=== PATIENT | female | born 1980 | race African-American/Black ===

== ENCOUNTER 2021-12-10 14:46 | Outpatient (REF) | payer OTHER, SELFPAY ==
[2021-12-10 15:47] LABS: Estimated Average Glucose 280 mg/dL; Hemoglobin A1c % 11.4 %
[2021-12-10 16:07] LABS: Alanine Aminotransferase 24 U/L (0-31); Albumin Level 4.4 g/dL (3.5-5.0); Alkaline Phosphatase 88 U/L (39-117); Anion Gap 15 (12-20); Aspartate Amino Transferase 16 U/L (5-31); Bilirubin Total 0.4 mg/dL (0.0-1.0); Blood Urea Nitrogen 12 mg/dL (9-16); Calcium 10.3 mg/dL (8.4-10.2); Carbon Dioxide 25 mmol/L (22-29); Chloride 97 mmol/L (96-108); Estimated Glomerular Filt Rate 49; Glucose Random 400 mg/dL (60-115); Potassium 4.8 mmol/L (3.3-5.1); Sodium 132 mmol/L (135-145); Total Protein 8.1 g/dL (6.5-8.0)
== END 2021-12-10 14:47 | disposition home or self-care (01) ==
LOC: HO.LAB 14:46
PROVIDERS: PCP Internal Medicine; Visit Provider Internal Medicine
DX: E11.65 Type 2 diabetes mellitus with hyperglycemia (principal); H81.10 Benign paroxysmal vertigo, unspecified ear; I10 Essential (primary) hypertension; R51.9 Headache, unspecified
CPT/HCPCS: 36415; 80053; 83036

== ENCOUNTER 2022-04-01 10:25 | Outpatient (REF) | payer OTHER, SELFPAY ==
[2022-04-01 11:19] LABS: MANUAL DIFF FLAG NO
[2022-04-01 12:20] LABS: Basophils Percent Auto 0.2 % (0-2); Eosinophils Absolute Auto 0.1 X10*3/uL (0.0-0.4); Eosinophils Percent Auto 2.1 % (0-4); Hematocrit 38.3 % (37.0-47.0); Hemoglobin 11.9 g/dl (12.0-16.0); Lymphocytes Absolute Auto 2.1 X10*3/uL (1.2-4.9); Lymphocytes Percent Auto 48.4 % (20-40); Mean Corpuscular HGB Conc 31.1 g/dl (31.0-35.0); Mean Corpuscular Hemoglobin 26.2 pg (27.0-33.0); Mean Corpuscular Volume 84.4 fL (80.0-98.0); Monocytes Absolute Auto 0.4 X10*3/uL (0.1-1.2); Monocytes Percent Auto 8.9 % (2-11); Neutrophils Absolute Auto 1.8 x10*3/uL (2.0-8.3); Neutrophils Percent Auto 40.4 % (45-73); Platelet Count 325 X10*3/uL (160-400); Red Blood Count 4.54 X10*6/uL (4.20-5.50); Red Cell Distribution Width 15.8 % (11.0-16.0); White Blood Count 4.4 X10*3/uL (4.8-10.8)
[2022-04-01 12:44] LABS: Estimated Average Glucose 157 mg/dL; Hemoglobin A1c % 7.1 %
[2022-04-01 12:46] LABS: Alanine Aminotransferase 22 U/L (0-31); Albumin Level 4.2 g/dL (3.5-5.0); Alkaline Phosphatase 63 U/L (39-117); Anion Gap 14 (12-20); Aspartate Amino Transferase 20 U/L (5-31); Bilirubin Total 0.4 mg/dL (0.0-1.0); Blood Urea Nitrogen 13 mg/dL (9-16); Calcium 9.5 mg/dL (8.4-10.2); Carbon Dioxide 28 mmol/L (22-29); Chloride 103 mmol/L (96-108); Cholesterol 183 mg/dL; Estimated Glomerular Filt Rate > 60; Glucose Random 87 mg/dL (60-115); HDL Cholesterol 47 mg/dL; LDL Cholesterol Calculated 123 mg/dl; Potassium 4.2 mmol/L (3.3-5.1); Sodium 141 mmol/L (135-145); Total Protein 7.7 g/dL (6.5-8.0); Triglycerides 65 mg/dL
[2022-04-01 13:13] LABS: Creatinine Urine 120.69 mg/dL; Microalbum/Creatinine Ratio Ur 16.5 ug/mg cr
== END 2022-04-01 10:26 | disposition home or self-care (01) ==
LOC: HO.LAB 10:25
PROVIDERS: PCP Internal Medicine; Visit Provider Internal Medicine
DX: D50.9 Iron deficiency anemia, unspecified (principal); E11.65 Type 2 diabetes mellitus with hyperglycemia
CPT/HCPCS: 36415; 80053; 80061; 82043; 83036; 85025

== ENCOUNTER 2022-06-18 09:39 | Outpatient (REF) | payer OTHER, SELFPAY ==
[2022-06-22 19:29] LABS: Glutamic acid decarboxylase Ab <5 IU/mL (<5)
== END 2022-06-18 09:40 | disposition home or self-care (01) ==
LOC: HO.LAB 09:39
PROVIDERS: PCP Internal Medicine; Visit Provider Internal Medicine Endocrinology, Diabetes & Metabolism
DX: E11.9 Type 2 diabetes mellitus without complications (principal)
CPT/HCPCS: 36415; 82947; 86341

== ENCOUNTER 2022-08-15 07:29 | Outpatient (REF) | payer OTHER, SELFPAY ==
[2022-08-15 08:32] LABS: Glucose Random 97 mg/dL (60-115)
[2022-08-15 08:36] LABS: Alanine Aminotransferase 10 U/L (0-31); Alkaline Phosphatase 62 U/L (39-117); Anion Gap 11 (12-20); Aspartate Amino Transferase 13 U/L (5-31); Bilirubin Total 0.3 mg/dL (0.0-1.0); Blood Urea Nitrogen 14 mg/dL (9-16); Calcium 9.1 mg/dL (8.4-10.2); Carbon Dioxide 27 mmol/L (22-29); Chloride 106 mmol/L (96-108); Estimated Glomerular Filt Rate > 60; Glucose Random 97 mg/dL (60-115); Sodium 140 mmol/L (135-145)
[2022-08-15 08:37] LABS: Estimated Average Glucose 146 mg/dL; Hemoglobin A1c % 6.7 %
== END 2022-08-15 07:30 | disposition home or self-care (01) ==
LOC: HO.LAB 07:29
PROVIDERS: PCP Internal Medicine; Visit Provider Internal Medicine
DX: E11.9 Type 2 diabetes mellitus without complications (principal); N30.01 Acute cystitis with hematuria; R30.0 Dysuria; R35.0 Frequency of micturition
CPT/HCPCS: 36415; 80053; 82947; 83036

== ENCOUNTER 2022-12-19 11:08 | Outpatient (REF) | payer OTHER, SELFPAY ==
[2022-12-19 11:20] LABS: MANUAL DIFF FLAG NO
[2022-12-19 11:33] LABS: Basophils Percent Auto 0.4 % (0-2); Eosinophils Absolute Auto 0.1 X10*3/uL (0.0-0.4); Eosinophils Percent Auto 1.8 % (0-4); Hematocrit 36.9 % (37.0-47.0); Hemoglobin 11.5 g/dl (12.0-16.0); Lymphocytes Absolute Auto 2.3 X10*3/uL (1.2-4.9); Lymphocytes Percent Auto 46.1 % (20-40); Mean Corpuscular HGB Conc 31.2 g/dl (31.0-35.0); Mean Corpuscular Hemoglobin 26.7 pg (27.0-33.0); Mean Corpuscular Volume 85.6 fL (80.0-98.0); Mean Platelet Volume 9.8 fL (9.4-12.3); Monocytes Absolute Auto 0.4 X10*3/uL (0.1-1.2); Monocytes Percent Auto 8.9 % (2-11); Neutrophils Absolute Auto 2.1 x10*3/uL (2.0-8.3); Neutrophils Percent Auto 42.8 % (45-73); Platelet Count 298 X10*3/uL (160-400); Red Blood Count 4.31 X10*6/uL (4.20-5.50); Red Cell Distribution Width 15.4 % (11.0-16.0)
[2022-12-19 11:38] LABS: Estimated Average Glucose 134 mg/dL; Hemoglobin A1c % 6.3 %
[2022-12-19 12:19] LABS: Alanine Aminotransferase 17 U/L (0-31); Albumin Level 4.2 g/dL (3.5-5.0); Alkaline Phosphatase 65 U/L (39-117); Anion Gap 11 (12-20); Aspartate Amino Transferase 17 U/L (5-31); Bilirubin Total 0.3 mg/dL (0.0-1.0); Blood Urea Nitrogen 11 mg/dL (9-16); Calcium 9.2 mg/dL (8.4-10.2); Carbon Dioxide 30 mmol/L (22-29); Chloride 104 mmol/L (96-108); Cholesterol 175 mg/dL; Estimated Glomerular Filt Rate > 60; Glucose Random 66 mg/dL (60-115); HDL Cholesterol 51 mg/dL; LDL Cholesterol Calculated 111 mg/dl; Potassium 4.1 mmol/L (3.3-5.1); Sodium 141 mmol/L (135-145); Total Protein 7.3 g/dL (6.5-8.0); Triglycerides 67 mg/dL
[2022-12-19 12:43] LABS: Ferritin 72 ng/mL (10-250); Vitamin B12 > 2000 pg/mL (200-900)
[2022-12-19 13:05] LABS: Creatinine Urine 213.76 mg/dL; Microalbum/Creatinine Ratio Ur 96.3 ug/mg cr
== END 2022-12-19 11:09 | disposition home or self-care (01) ==
LOC: HO.LAB 11:08
PROVIDERS: PCP Internal Medicine; Visit Provider Internal Medicine
DX: Z00.00 Encounter for general adult medical examination without abnormal findings (principal); I10 Essential (primary) hypertension; E11.9 Type 2 diabetes mellitus without complications; D57.3 Sickle-cell trait
CPT/HCPCS: 36415; 80053; 80061; 82043; 82607; 82728; 83036; 85025

== ENCOUNTER 2023-04-07 14:11 | Outpatient (REF) | payer OTHER, SELFPAY ==
[2023-04-07 15:13] LABS: Alanine Aminotransferase 11 U/L (0-31); Albumin Level 4.1 g/dL (3.5-5.0); Alkaline Phosphatase 62 U/L (39-117); Anion Gap 9 (12-20); Aspartate Amino Transferase 14 U/L (5-31); Bilirubin Total 0.4 mg/dL (0.0-1.0); Blood Urea Nitrogen 10 mg/dL (9-16); Calcium 9.8 mg/dL (8.4-10.2); Carbon Dioxide 30 mmol/L (22-29); Chloride 103 mmol/L (96-108); Cholesterol 141 mg/dL (<200); Estimated Glomerular Filt Rate > 60; Glucose Random 104 mg/dL (60-115); HDL Cholesterol 50 mg/dL (>40); LDL Cholesterol Calculated 78 mg/dL (<100); Potassium 3.5 mmol/L (3.3-5.1); Sodium 138 mmol/L (135-145); Total Protein 7.6 g/dL (6.5-8.0); Triglycerides 67 mg/dL (<150)
[2023-04-07 15:15] LABS: Estimated Average Glucose 131 mg/dL; Hemoglobin A1c % 6.2 % (<6.0)
== END 2023-04-07 14:12 | disposition home or self-care (01) ==
LOC: HO.LAB 14:11
PROVIDERS: PCP Internal Medicine; Visit Provider Internal Medicine
DX: E11.9 Type 2 diabetes mellitus without complications (principal); E78.00 Pure hypercholesterolemia, unspecified; I10 Essential (primary) hypertension; R80.8 Other proteinuria
CPT/HCPCS: 36415; 80053; 80061; 83036

== ENCOUNTER 2023-10-21 12:15 | Outpatient (REF) | payer OTHER, SELFPAY ==
[2023-10-21 12:38] LABS: MANUAL DIFF FLAG NO
[2023-10-21 13:19] LABS: Basophils Percent Auto 0.3 % (0-2); Eosinophils Absolute Auto 0.2 X10*3/uL (0.0-0.4); Eosinophils Percent Auto 5.3 % (0-4); Hematocrit 38.1 % (37.0-47.0); Hemoglobin 11.9 g/dl (12.0-16.0); Imm Gran Abs Auto 0.01 X10*3/uL (0.00-0.03); Imm Gran Pct Auto 0.3 % (0.0-0.4); Lymphocytes Absolute Auto 1.8 X10*3/uL (1.2-4.9); Lymphocytes Percent Auto 45.9 % (20-40); Mean Corpuscular HGB Conc 31.2 g/dl (31.0-35.0); Mean Corpuscular Hemoglobin 26.7 pg (27.0-33.0); Mean Corpuscular Volume 85.6 fL (80.0-98.0); Mean Platelet Volume 9.6 fL (9.4-12.3); Monocytes Absolute Auto 0.3 X10*3/uL (0.1-1.2); Monocytes Percent Auto 6.8 % (2-11); Neutrophils Absolute Auto 1.7 x10*3/uL (2.0-8.3); Neutrophils Percent Auto 41.4 % (45-73); Platelet Count 282 X10*3/uL (160-400); Red Blood Count 4.45 X10*6/uL (4.20-5.50); Red Cell Distribution Width 15.4 % (11.0-16.0)
[2023-10-21 13:32] LABS: Estimated Average Glucose 140 mg/dL; Hemoglobin A1c % 6.5 % (<6.0)
[2023-10-21 14:02] LABS: Creatinine Urine 86.32 mg/dL; Microalbum/Creatinine Ratio Ur 20.8 ug/mg cr (<30)
[2023-10-21 14:08] LABS: Alanine Aminotransferase 15 U/L (0-31); Albumin Level 4.2 g/dL (3.5-5.0); Alkaline Phosphatase 61 U/L (39-117); Anion Gap 9 (12-20); Aspartate Amino Transferase 15 U/L (5-31); Bilirubin Total 0.3 mg/dL (0.0-1.0); Blood Urea Nitrogen 15 mg/dL (9-16); Calcium 9.4 mg/dL (8.4-10.2); Carbon Dioxide 30 mmol/L (22-29); Chloride 105 mmol/L (96-108); Cholesterol 169 mg/dL (<200); Estimated Glomerular Filt Rate > 60; Glucose Random 107 mg/dL (60-115); HDL Cholesterol 53 mg/dL (>40); LDL Cholesterol Calculated 108 mg/dL (<100); Potassium 3.9 mmol/L (3.3-5.1); Sodium 140 mmol/L (135-145); Total Protein 7.7 g/dL (6.5-8.0); Triglycerides 44 mg/dL (<150)
[2023-10-21 14:12] LABS: Ferritin 74 ng/mL (10-250)
[2023-10-21 14:19] LABS: Vitamin B12 1294 pg/mL (200-900)
[2023-10-22 19:13] LABS: Follicle Stimulating Hormone 38.8 mIU/mL; Prolactin 20.7 ng/mL
== END 2023-10-21 12:16 | disposition home or self-care (01) ==
LOC: HO.LAB 12:15
PROVIDERS: PCP Internal Medicine; Visit Provider Internal Medicine
DX: Z00.00 Encounter for general adult medical examination without abnormal findings (principal); N91.1 Secondary amenorrhea; N64.3 Galactorrhea not associated with childbirth; I10 Essential (primary) hypertension; E78.00 Pure hypercholesterolemia, unspecified; E11.9 Type 2 diabetes mellitus without complications; D50.9 Iron deficiency anemia, unspecified
CPT/HCPCS: 36415; 80053; 80061; 82043; 82570; 82607; 82728; 83001; 83036; 84146; 85025

== ENCOUNTER 2024-05-24 08:28 | Outpatient (REF) | payer OTHER, SELFPAY ==
[2024-05-24 10:15] LABS: Estimated Average Glucose 146 mg/dL; Hemoglobin A1c % 6.7 % (<6.0); Total Hemoglobin (HGBA1C) 3002.2858 umol/L
[2024-05-24 11:06] LABS: Alanine Aminotransferase 19 U/L (0-31); Albumin Level 3.9 g/dL (3.5-5.0); Alkaline Phosphatase 58 U/L (39-117); Anion Gap 11 (12-20); Aspartate Amino Transferase 18 U/L (5-31); Bilirubin Total 0.2 mg/dL (0.0-1.0); Blood Urea Nitrogen 11 mg/dL (9-16); Calcium 9.5 mg/dL (8.4-10.2); Carbon Dioxide 26 mmol/L (22-29); Chloride 108 mmol/L (96-108); Cholesterol 161 mg/dL (<200); Estimated Glomerular Filt Rate > 60; Glucose Random 105 mg/dL (60-115); HDL Cholesterol 43 mg/dL (>40); LDL Cholesterol Calculated 106 mg/dL (<100); Potassium 3.9 mmol/L (3.3-5.1); Sodium 141 mmol/L (135-145); Total Protein 7.4 g/dL (6.5-8.0); Triglycerides 60 mg/dL (<150)
[2024-05-25 15:24] LABS: Prolactin 4.6 ng/mL
== END 2024-05-24 08:29 | disposition home or self-care (01) ==
LOC: HO.LAB 08:28
PROVIDERS: PCP Internal Medicine; Visit Provider Internal Medicine
DX: E11.9 Type 2 diabetes mellitus without complications (principal); E78.00 Pure hypercholesterolemia, unspecified; I10 Essential (primary) hypertension; M22.2X1 Patellofemoral disorders, right knee; M22.2X2 Patellofemoral disorders, left knee
CPT/HCPCS: 36415; 80053; 80061; 83036; 84146

== ENCOUNTER 2024-09-10 10:50 | Outpatient (REF) | payer OTHER, SELFPAY ==
[2024-09-10 11:45] LABS: Estimated Average Glucose 146 mg/dL; Hemoglobin A1C 155.5975 umol/L; Hemoglobin A1c % 6.7 % (<6.0); Total Hemoglobin (HGBA1C) 3118.3583 umol/L
--- OUTSIDE RECORDS SUMMARY | 2024-09-10 11:55 | XMS_ITS | Encounter Summary ---
Author Organization [facility] Address [address] [place] [address] Care Team Providers Care Professor Of Marketing Name Role Phone Alanna Shay Primary Care Provider [phone] Reason for Visit * Reason Onset Date Comments PAC Appt Request - New 09/07/2024 Encounter Details Date Type Department Care Team (Late st Contact Info) Description 09/07/2024 Telephone [facility] [address] [place] [address] Technical Specialist Cytology: Scar Solorzano Telephone Intake, Staff PAC Appt Request - New Social History Tobacco Use Types Packs/Day Years Used Date Smoking Tobacco: Never Assessed Comments Unknown Sex and Gender Information Value Date Recorded Sex Assigned at Female 07/27/2024 11:39 AM EST Legal Sex Female 7:06 AM EDT Gender Identity Not on file Sexual Orientation Not on file documented as of this encounter Miscellaneous Notes * Telephone Encounter - Cheryl Guillen - 09/07/2024 1:32 PM EST Pt called to receive an update on rescheduling appt dated 09/07/24 @ 8:30am. Pls contact pt to resched, per her request. Thank you. * Telephone Encounter - Claribel Cheli - 09/07/2024 8:56 AM EST Patient calling to reschedule her appointment today 09-07-2024 at 8:30 am with Martha Brower because her car broke down, she is waiting on AAA. Patient is departing 09-17-2024 to [facility] patient is requesting an in person appointment unable to schedule before departure date. Pleasereach out to patient at [phone] documented in this encounter Plan of Treatment Not on file documented as of this encounter Visit Diagnoses Not on filedocumented in this encounter Care Teams Professor Of Marketing Relationship Specialty Start Date End Date Alanna Shay [address] [facility] [address] [place] [address] PCP - General Internal Medicine 11/22/21 documented as of this encounter
--- OUTSIDE RECORDS SUMMARY | 2024-09-10 11:55 | XMS_ITS | Encounter Summary ---
Author Organization [facility] Address [address] [place] [address] Care Team Providers Care Fixed Income Analyst Name Role Phone Alanna Shay Primary Care Provider [phone] Encounter Details Date Type Department Care Team (Late st Contact Info) Description 09/07/2024 Telephone [facility] [address] [place], [place] [id number] Aboriginal Ceremonial Celebrant: Scar Grider, Pcp [place] Social History Tobacco Use Types Packs/Day Years Used Date Smoking Tobacco: Never Assessed Comments Unknown Sex and Gender Information Value Date Recorded Sex Assigned at Female 07/27/2024 11:39 AM EST Legal Sex Female 7:06 AM EDT Gender Identity Not on file Sexual Orientation Not on file documented as of this encounter Miscellaneous Notes * Telephone Encounter - Jeffery Tipton - 09/07/2024 4:16 PM EST Called pt to reschedule travel consult no answer lvm documented in this encounter Plan of Treatment Not on file documented as of this encounter Visit Diagnoses Not on filedocumented in this encounter Care Teams Fixed Income Analyst Relationship Specialty Start Date End Date Alanna Shay [address] [facility] [address] [place] [address] PCP - General Internal Medicine 11/22/21 documented as of this encounter
--- OUTSIDE RECORDS SUMMARY | 2024-09-10 11:55 | XMS_ITS | Clinical Summary ---
Author Organization [facility] Address [address] [place] [address] Care Team Providers Care Wheelchair Rental Clerk Name Role Phone Alanna Shay Primary Care Provider [phone] Allergies No known active allergies Medications mefloquine (LARIAM) 250 mg tablet 1 tablet orally once weekly for 2 weeks before travel, weekly during travel and for 4 weeks after returning home 10 tablet 2 Active Active Problems No known active problems Encounters Date Type Department Care Team Description 09/07/2024 Telephone [facility] [address] [place], [place] [id number] Yardmaster: Scar Solorzano No, Pcp 09/07/2024 Telephone [facility] [address] [place] [id number] Yardmaster: Scar Solorzano Telephone Intake, Staff PAC Appt Request - New from Last 3 Months Immunizations Immunization Administration Dates Next Due Meningococcal Polysaccharide (Groups A, C, Y and W-135) Diphtheria Toxoid Conjugate Vaccine (MCV4P) 12/31/2021 Typhoid Vi Capsular Polysaccharide Vaccine 12/31 Social History Tobacco Use Types Packs/Day Years Used Date Smoking Tobacco: Never Assessed Comments Unknown Sex and Gender Information Value Date Recorded Sex Assigned at Female 07/27/2024 11:39 AM EST Legal Sex Female 7:06 AM EDT Gender Identity Not on file Sexual Orientation Not on file Last Filed Vital Signs Vital Sign Reading Time Taken Comments Blood Pressure - - Pulse - - Temperature 36.7 ??C (98.1 ??F) 12/31/2021 5:08 PM ED T Respiratory Rate - - Oxygen Saturation - - Inhaled Oxygen Concentration - - Weight 81.2 kg (179 lb 0.2 oz) 12/31/2021 5:08 P M EDT Height - - Body Mass Index - - Plan of Treatment Health Maintenance Due Date Last Done Comments HIV Screening 1980 Hepatitis C Screening 1980 Varicella Vaccines (1 of 2 - 13+ 2-dose series) 1993 Hepatitis B Vaccines (1 of 3 - 19+ 3-dose series) 1999 Pap Smear 09/23/2005 09/23/2002, 12/01/2000 Cervical Cancer Screening 09/24/2007 HPV and Pap Smear 09/24/2007 09/23/2002 Mammogram 2020 DTaP,Tdap,and Td Vaccines (2 - Td or Tdap) 01/28/2023 01/28/2013 COVID-19 Vaccine ( season) 2024 05/03/2021, 08/29/2020, 08/08/2020 Alcohol/Substance Use Screening 07/21/2024 Depression Screening and Follow-Up 07/21/2024 Social Drivers of Health Annual Screening 07/21/2024 RSV Vaccine (60+ years old and patients) (1 - 1-dose 75+ series) 2055 Influenza Vaccine Completed 04/27/2024, , 05/01/2021, Additional history exists Pneumococcal Vaccine: Pediatric (0-5 Years) and At-Risk Patients (6-50 Years) Aged Out No longer eligible based on patient's age to complete this topic Procedures * Due to [place] [employer] law, this organization might not be sharing negative HIV tests. Procedure Name Priority Date/Time Associated Diagnosis Comments PAP W/REFLEX HPV, CONVERSION Routine 09/23/2002 10:43 AM EST from Last 3 Months or Most Recently Relevant to Health Maintenance Results * Due to [place] [employer] law, this organization might not be sharing negative HIV tests. * Pap w/Reflex HPV (09/23/2002 10:43 AM EST) Path Procedure TPG ([id number]) 1 ?? Edited by: [id number] [facility] Specimen Labeled As: 1 CERVICAL/ENDOCERVI VASHTI CYTO MATERIAL - Edited by: [id number] YURIY-RE [facility] Diagnosis ?THINPREP PAP TEST ? ADEQUACY: ? Satisfactory for evaluation ? INTERPRETATION: ? Negative for Intraepithelial Lesion or Malignancy ? REMARKS/RECOMMENDA TIONS: ? This is the result of a screening test with an inherent, but low, ?? probability of false negative interpretation. Additional studies may be ?? indicated in spite of a normal Pap test result. ?? Edited by: [id number] - 9368 AMRIK [facility] Gynecologic Clinical Data Specimen source:, THINPREP (CERVICAL AND ENDOCERVICAL) [facility] Gynecologic Clinical Data First date of LMP:, 09/04/02 [facility] Marker 1 RCROSLYN ALDANA [facility] Marker 2 NILM,NILM [facility] Cc Results To RENETTA DENISE REF [id number] [facility] Signature REPORT SIGNED: ROSLYN ALDANA 09/28/02 [facility] Sign Out Audit ROSLYN ALDANA [id number] [place] [place] [id number] [facility] Cytology / Unknown 3 10:43 AM EST 09/24/2002 10:43 AM EST us Marlin Phillips LAB HISTORICAL RESULTS Final Res ult [facility] [address] [place] [address], from Last 3 Months or Most Recently Relevant to Health Maintenance Insurance [employer] Care Teams Wheelchair Rental Clerk Relationship Specialty Start Date End Date Alanna Shay [address] [facility] [address] [place] [address] PCP - General Internal Medicine 11/22/21
--- OUTSIDE RECORDS SUMMARY | 2024-09-10 11:55 | XMS_ITS | Referral Summary ---
Author Organization [facility] Address [address] [place] [address] Care Team Providers Care Professor Of Musicology Name Role Phone Alanna Shay Primary Care Provider [phone] Encounters Date Type Department Care Team Description 09/07/2024 Telephone [facility] [address] [place] [address] Associate Professor Of Pathology: Scar Solorzano No, Pcp 09/07/2024 Telephone [facility] [address] [place] [id number] Associate Professor Of Pathology: Scar Solorzano Telephone Intake, Staff PAC Appt Request - New from Last 3 Months Allergies No known active allergies Medications mefloquine (LARIAM) 250 mg tablet 1 tablet orally once weekly for 2 weeks before travel, weekly during travel and for 4 weeks after returning home 10 tablet 2 Active Active Problems No known active problems Immunizations Immunization Administration Dates Next Due Meningococcal [...] Mass Index - - Plan of Treatment Not on file Procedures * Due to [facility] law, this organization might not be sharing negative HIV tests. Procedure Name Priority Date/Time Associated Diagnosis Comments PAP W/REFLEX HPV, CONVERSION Routine 09/23/2002 10:43 AM EST from Last 3 Months or Most Recently Relevant to Health Maintenance Results * Due to [place] [employer] law, this organization might not be sharing negative HIV tests. * Pap w/Reflex HPV (09/23/2002 10:43 AM EST) Path Procedure TPG ([id number]) 1 ?? Edited by: [id number] - 1042 [facility]A [facility] - [facility] Specimen Labeled As: 1 CERVICAL/ENDOCERVI VASHTI CYTO MATERIAL - Edited by: [id number] - 1042 YURIY-LITTLE [facility] - [facility] Diagnosis ?THINPREP [...] normal Pap test result. ?? Edited by: [id number] - 1334 AMRIK [facility] - [facility] Gynecologic Clinical Data Specimen source:, THINPREP (CERVICAL AND ENDOCERVICAL) [facility] - [facility] Gynecologic Clinical Data First date of LMP:, 09/04/02 [facility] - [facility] Marker 1 ROSLYN [facility]AT[facility] - [facility] Marker 2 NILM,NILM [facility]AT[facility] - [facility] THREE Cc Results To RENETTA DENISE REF [id number] [facility] - [facility] Signature REPORT SIGNED: ROSLYN ALDANA 09/28/02 [facility] - [facility] Sign Out Audit JOVANROSLYN Henrry [id number] FINAL [place] [id number] [facility] - [facility] THREE Cytology / Unknown 3 10:43 AM EST 09/24/2002 10:43 AM EST us Marlin Phillips LAB HISTORICAL RESULTS Final Res ult [facility] - [facility] [address] [place] [address], from Last 3 Months or Most Recently Relevant to Health Maintenance Insurance [employer] Care Teams Professor Of Musicology Relationship Specialty Start Date End Date Alanna Shay [address] [facility] [address] [place] [address] PCP - General Internal Medicine 11/22/21
[2024-09-10 12:13] LABS: Alanine Aminotransferase 17 U/L (0-31); Albumin Level 3.9 g/dL (3.5-5.0); Alkaline Phosphatase 60 U/L (39-117); Anion Gap 9 (12-20); Aspartate Amino Transferase 20 U/L (5-31); Bilirubin Total 0.5 mg/dL (0.0-1.0); Blood Urea Nitrogen 8 mg/dL (9-16); Calcium 9.1 mg/dL (8.4-10.2); Carbon Dioxide 27 mmol/L (22-29); Chloride 109 mmol/L (96-108); Cholesterol 115 mg/dL (<200); Estimated Glomerular Filt Rate > 60; Glucose Random 102 mg/dL (60-115); HDL Cholesterol 47 mg/dL (>40); LDL Cholesterol Calculated 62 mg/dL (<100); Sodium 141 mmol/L (135-145); Total Protein 7.6 g/dL (6.5-8.0); Triglycerides 32 mg/dL (<150)
== END 2024-09-10 10:51 | disposition home or self-care (01) ==
LOC: HO.LAB 10:50
PROVIDERS: PCP Internal Medicine; Visit Provider Internal Medicine
DX: E11.9 Type 2 diabetes mellitus without complications (principal); E16.1 Other hypoglycemia; E78.00 Pure hypercholesterolemia, unspecified; I10 Essential (primary) hypertension
CPT/HCPCS: 36415; 80053; 80061; 83036

== ENCOUNTER 2025-06-06 08:56 | Outpatient (REF) | payer OTHER, SELFPAY ==
[2025-06-06 10:19] LABS: Alanine Aminotransferase 17 U/L (0-31); Albumin Level 4.4 g/dL (3.5-5.0); Alkaline Phosphatase 64 U/L (39-117); Anion Gap 9 (12-20); Aspartate Amino Transferase 19 U/L (5-31); Blood Urea Nitrogen 8 mg/dL (9-16); Calcium 9.3 mg/dL (8.4-10.2); Carbon Dioxide 28 mmol/L (22-29); Chloride 107 mmol/L (96-108); Estimated Glomerular Filt Rate > 60; Potassium 4.0 mmol/L (3.3-5.1); Sodium 140 mmol/L (135-145); Total Protein 7.6 g/dL (6.5-8.0)
== END 2025-06-06 08:57 | disposition home or self-care (01) ==
LOC: HO.LAB 08:56
PROVIDERS: PCP Internal Medicine; Visit Provider Internal Medicine
DX: E11.9 Type 2 diabetes mellitus without complications (principal); E66.811 Obesity, class 1; I10 Essential (primary) hypertension; R30.0 Dysuria
CPT/HCPCS: 36415; 80053; 83036